=== PATIENT | male | born 1995 | race Caucasian/White ===

== ENCOUNTER 2017-11-01 03:46 | Emergency (ER) | payer SELFPAY ==
--- NOTE | 2017-11-01 04:00 | EDM.PDOC ---
ED HPI GENERAL MEDICAL PROBLEM - General Stated Complaint: BLOODY NOSE Time Seen by Provider: 11/01/17 03:54 Source of Information: Reports: Patient History Limitations: Reports: No Limitations - History of Present Illness INITIAL COMMENTS - FREE TEXT/NARRATIVE: HISTORY AND PHYSICAL: History of present illness: [22-year-old male presenting emergency department with chief complaint of fever , sore throat, sinus congestion, and cough 2 days. Patient states that for the past 2 days he is had worsening cough with clear sputum production, fever, chills, sore throat, and sinus congestion. He states that he has had some bloody noses secondary to irritation. States that his fever has been up to 101. He denies any nausea, vomiting, diarrhea, abdominal pain, dysuria, ear pain, chest pain, palpitations, shortness of breath, syncopal episodes, focal neurologic deficits. He works at [employer] and states that he is exposed to many people however tries to keep his hands washed multiplied times throughout the day. He has no significant past medical history and takes no medications. He has no allergies. He did not receive the influenza vaccine this year.] Review of systems: As per history of present illness and below otherwise all systems reviewed and negative. Past medical history: As per history of present illness and as reviewed below otherwise noncontributory. Surgical history: As per history of present illness and as reviewed below otherwise noncontributory. Social history: No reported history of drug or alcohol abuse. Family history: As per history of present illness and as reviewed below otherwise noncontributory. Physical exam: HEENT: Atraumatic, normocephalic, pupils reactive, negative for conjunctival pallor or scleral icterus, mucous membranes moist, throat clear, neck supple, nontender, trachea midline. Lungs: Clear to auscultation, breath sounds equal bilaterally, chest nontender. Heart: S1S2, regular, negative for clicks, rubs, or JVD. Abdomen: Soft, nondistended, nontender. Negative for masses or hepatosplenomegaly. Negative for costovertebral tenderness. Pelvis: Stable nontender. Genitourinary: Deferred. Rectal: Deferred. Extremities: Atraumatic, negative for cords or calf pain. Neurovascular unremarkable. Neuro: Awake, alert, oriented. Cranial nerves II through XII unremarkable. Cerebellum unremarkable. Motor and sensory unremarkable throughout. Exam nonfocal. Diagnostics: [Rapid strep, influenza screen] Therapeutics: [Prescription for Flonase and Afrin] Impression: [Viral upper respiratory tract infection] Plan: [Patient was negative for rapid strep as well as influenza. Most of his symptoms were upper respiratory in nature. I did give the patient a prescription for Flonase to be used 2 puffs each nostril twice daily as well as Afrin which he should also use 2 puffs each nostril twice daily but no longer than 5 days straight. 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 I instructed him to follow-up with a primary care physician especially if this lasts longer than an additional 2-3 days as it could turn into a sinusitis that would require antibiotics. Patient is understanding. All questions were entertained and answered appropriately. Patient was discharged in good condition.] throat Pain Score (Numeric/FACES): 7 headache Pain Score (Numeric/FACES): 10 - Related Data Allergies Allergy/AdvReac Type Severity Reaction Status Date / Time No Known Allergies Allergy Verified 11/01/17 03:56 Home Meds: Home Meds . [No Known Home Meds] 11/01/17 [History] ED ROS GENERAL - Review of Systems Review Of Systems: See Below ED EXAM, GENERAL - Physical Exam Exam: See Below Course - Vital Signs Last Recorded V/S: Last Vital Signs Temp 97.6 F 11/01/17 03:57 Pulse 99 11/01/17 03:57 Resp 18 11/01/17 03:57 BP 145/102 H 11/01/17 03:57 Pulse Ox 95 11/01/17 03:57 - Orders/Labs/Meds Orders: Active Orders 24 hr Category Date Time Status CULTURE STREP A CONFIRMATION [] Stat Lab 11/01/17 04:20 Results STREP SCRN A RAPID W CULT CONF [] Stat Lab 11/01/17 04:20 Results Departure - Departure Time of Disposition: 05:04 Disposition: Home, Self-Care 01 Condition: Good Clinical Impression: Viral upper respiratory tract infection - Discharge Information Referrals: PCP,None [Primary Care Provider] - Additional Instructions: My general discharge The following information is given to patients seen in the emergency department who are being discharged to home. This information is to outline your options for follow-up care. We provide all patients seen in our emergency department with a follow-up referral. The need for follow-up, as well as the timing and circumstances, are variable depending upon the specifics of your emergency department visit. If you don't have a primary care physician on staff, we will provide you with a referral. We always advise you to contact your personal physician following an emergency department visit to inform them of the circumstance of the visit and for follow-up with them and/or the need for any referrals to a consulting specialist. The emergency department will also refer you to a specialist when appropriate. This referral assures that you have the opportunity for follow-up care with a specialist. All of these measure are taken in an effort to provide you with optimal care, which includes your follow-up. Under all circumstances we always encourage you to contact your private physician who remains a resource for coordinating your care. When calling for follow-up care, please make the office aware that this follow-up is from your recent emergency room visit. If for any reason you are refused follow-up, please contact the [facility] Emergency Department at and asked to speak to the emergency department charge nurse. [facility] [address] [place] [address] - My Orders Last 24 Hours: My Active Orders 11/01/17 04:20 CULTURE STREP A CONFIRMATION [RM] Stat STREP SCRN A RAPID W CULT CONF [RM] Stat - Assessment/Plan Last 24 Hours: My Active Orders 11/01/17 04:20 CULTURE STREP A CONFIRMATION [RM] Stat STREP SCRN A RAPID W CULT CONF [RM] Stat
== END 2017-11-01 05:25 | disposition home or self-care (01) ==
LOC: MW.ED 03:46
DX: J06.9 Acute upper respiratory infection, unspecified (principal)
CPT/HCPCS: 87081; 87804; 87880; 99283